=== PATIENT | female | born 1955 | race Caucasian/White ===

== ENCOUNTER 2021-09-13 03:34 | Emergency (ER) | payer OTHER, MEDICAID ==
[~2021-09-13] VITALS: Ht 172.7 cm; Wt 111.1 kg
[2021-09-13 03:59] VITALS: BP 153/88
== END 2021-09-13 08:12 | disposition left against medical advice (07) ==
LOC: ER 03:34 → EDBD 03:34 → ER 08:12
DX: M25.562 Pain in left knee (principal); Z53.21 Procedure and treatment not carried out due to patient leaving prior to being seen by health care provider; X58.XXXA Exposure to other specified factors, initial encounter; Y93.01 Activity, walking, marching and hiking; Y92.89 Other specified places as the place of occurrence of the external cause; Y99.8 Other external cause status